=== PATIENT | male | born 1980 | race Caucasian/White ===

== ENCOUNTER → 2017-11-21 06:40 | Outpatient (CLI) | payer OTHER, SELFPAY ==
--- NOTE | 2017-11-21 | DI.MRI.S_ITS ---
PROCEDURE: MR WRIST LT WO/W CON INDICATIONS: left wrist pain. Dorsal ganglion cyst TECHNIQUE: Noncontrast coronal proton density fast spin echo and T2 fast spin echo with fat saturation; coronal 3-D gradient echo, axial T1 spin echo and T2 fast spin echo with fat saturation, axial T1 spin echo with fat saturation, sagittal T1 spin echo through the wrist. Post-contrast axial, coronal, and sagittal T1 spin echo with fat saturation through the wrist. COMPARISON: None. FINDINGS: Image quality: There is mild heterogeneous fat saturation. Bones and cartilage: No suspicious osseous enhancement. The carpal bones are normally aligned. No bone marrow contusions or fractures. No evidence for avascular necrosis. Overlying cartilage surfaces appear normal. Carpal ligaments: There is mild partial tearing of the scapholunate ligament involving the volar and membranous components. The lunotriquetral ligament appears intact. In the absence of intra-articular contrast, the extrinsic carpal ligaments are not well identified. On sagittal images, the pisohamate ligament appears intact. Triangular fibrocartilage complex: The triangular fibrocartilage appears intact. The adjacent meniscal homolog appears normal in the absence of intra-articular contrast. The extensor carpi ulnaris tendon is normal in location with mild tendinopathy at the level of the wrist. Tendons and soft tissues: There is a small indistinct elongated cyst dorsal to the carpus between the distal aspect of the scaphoid and the capitate. This measures approximately 1.6 cm in transverse dimension by 0.2 cm in anteroposterior dimension. No evidence of associated internal enhancement. No suspicious soft tissue enhancement. The carpal tunnel structures appear normal, including the median nerve. The ulnar nerve appears normal within Guyon's canal. All six extensor tendon compartments demonstrate normal morphology, without pathologic tendon sheath fluid. IMPRESSION: 1. Small indistinct elongated cystic lesion dorsal to the carpus as described compatible with patient's history of a ganglion cyst. 2. Mild partial tearing of the scapholunate ligament. Dictated by: Vj Noe M.D. on 11/21/2017 at 10:29 Approved by: Vj Noe M.D. on 11/21/2017 at 10:37
== END ==
PROVIDERS: Visit Provider Orthopaedic Surgery
DX: M25.532 Pain in left wrist (principal); M67.432 Ganglion, left wrist
CPT/HCPCS: 73223; A9579

== ENCOUNTER 2018-03-19 08:58 | Day surgery (SDC) | payer OTHER, SELFPAY ==
[2018-03-18 13:56] VITALS: BMI 24.3
[2018-03-19] VITALS (7 sets, daily range): BP systolic 116–129; BP diastolic 75–88; PULSE 65–86; RESP 10–16; TEMP 36.1–36.7; O2SAT 96–100; BMI 23.8
[2018-03-19] MEDS: LACTATED RINGERS 1,000 ML 42 ML IV (09:33)
--- NOTE | 2018-03-19 10:59 | PM.PREOP ---
Pre-operative Note Interval Note Pre-op Check: Yes History & Physical Reviewed by Physician and Yes Exam Performed Changes: No
[2018-03-19] MEDS: CEFAZOLIN 2 GM/100 ML FROZ.PIGGY IV (11:20)
--- NOTE | 2018-03-19 11:42 | SUR.OPER ---
Supine on padded OR bed, head on pillow, right arm secured on padded arm board at <90 degrees abduction, left arm on large padded arm boared controlled by sugeon, legs uncrossed, safety belt at thigh, tape over blanket over lower legs.
[2018-03-19] MEDS: BUPIVACAINE 0.25% (PF) VIAL 30 ML INJ (11:53)
--- NOTE | 2018-03-19 12:15 | PM.OP.1 ---
Operative Date/Time/Diagnoses Date of procedure: 03/19/18 Time of procedure: 11:15 Pre-op diagnosis: Left extensor pollicis longus tendinosis Dorsal wrist ganglion cyst Post-op diagnosis: same Procedure & Clinicians Procedure: Decompression of left extensor pollicis longus at the wrist Dorsal wrist ganglion decompression Same procedure as scheduled: Yes Indications: 37-year-old male who said pain with EPL function at Kaylyn's tubercle and an MRI showing tendinosis. With rest it did not bother him but every time I tried to increase his activities his symptoms became activity limiting and he could not persist. We discussed the risks, benefits, alternatives to surgery. Risks included pain, bleeding, infection, damage to nearby structures, numbness, need for further surgery, bowstring. Goal of surgery was to remove the tendon from the prominent Kaylyn's and decrease his pain. He signed a consent form. Surgeon: Biju Roldan Click Yes if Unassisted: Yes Anesthesia Type: General and Local Operative Notes Findings: Cyst located at Kaylyn's tubercle adjacent to the EPL tendon. EPL tendon was mildly tendinotic. Closure Type: primary Specimen(s): none sent Implants & Drains: None Estimated Blood Loss (mL): 2 Blood products transfused: none Tourniquet time (min): 23 Procedure in detail: The patient was met in the preop hold area of the the procedure. Operative extremity signed. Consent was verified. He desired to proceed. He was brought to the operating room and surrendered anesthesia. Once general anesthesia was obtained he was placed in a supine position all bony prominences were well padded. He was then prepped and draped in standard sterile fashion. Surgical time-out was held to confirm the patient procedure, identity, allergies, images, antibiotics. All were in agreement we proceeded A 4 cm incision was made directly over the course of the PL tendon just ulnar to Kaylyn's tubercle. Identified a branch of the SBRN distally within the wound and this was protected throughout the case. I brought sharp dissection down to the extensor retinaculum made a small window proximally overlying the EPL tendon. A cyst was identified at the Kaylyn's tubercle and this was decompressed. I then used scissors to complete the release of the extensor retinaculum over the 3rd compartment. I extended this proximally and distally to allow the EPL tendon to move freely out of the compartment. I saw the distal intersection and it looked normal. Of the tendon looks slightly tendinotic at the level of Kaylyn's. With the tendon down the subcutaneous position I closed the extensor retinaculum with 2 O Vicryl. I irrigated the wound copiously. I then closed with 2 O Vicryl in the dermis and a running Monocryl in the skin. Steri-Strips were applied. 10 cc of 0.25% Marcaine were placed about the wound. A sterile dressing was applied and he was awakened and transition to recovery. Complications: none Condition: stable Disposition: same day surgery Plan for aftercare: Dressing on for 5 days. Full range of motion at the wrist and throughout the hands. No lifting until incision is completely healed.
== END 2018-03-19 12:52 | disposition home or self-care (01) ==
PROVIDERS: PCP Physician Assistant; Visit Provider Orthopaedic Surgery
PROC: (CPT 25320; principal; 2018-03-19 11:00)
PROC: (CPT 26160; 2018-03-19 11:00)
DX: M67.432 Ganglion, left wrist (principal)
CPT/HCPCS: 25111; 25000; J0690; J1100; J2250; J2405; J2704; J3010